=== PATIENT | female | born 1970 | race Caucasian/White ===

== ENCOUNTER 2022-04-27 16:17 | Emergency (ER) | payer OTHER ==
--- OUTSIDE RECORDS SUMMARY | 2022-04-27 16:20 | XMS REPORT | Continuity of Care Document ---
:1970 Author Organization [facility] t Address [address] [place] [address] Care Team Providers Name Role Phone AMINA ESPARZA Primary Care Physician Unavailable GUS_PARESH_Guevara Attending Clinician Unavailable GC_GUS_Guevara_J Attending Clinician Unavailable Rohan Waterman Attending Clinician [phone] RADIOLOGY Attending Clinician Unavailable Radiology Attending Clinician Unavailable GUS_PARESH_Guevara Admitting Clinician Unavailable GC_SWH[facility]OM[facility]_Gullett_J Admitting Clinician Unavailable AMINA ESPARZA Admitting Clinician Unavailable Payers Payer Name Policy Type Policy Number Effective Date Expiration Date Dontae lemus [facility]LY [facility] [id number] 2012 (PPO) 00[facility]00[facility] [id number] 2021 00:00:00 Problems Condition Condition Condition Status Onset Resolution Last Treating Co mments Source Name Details Category Date Date Treatment Clinician Date 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 [facility] thalassemi Thalassemi Me dical a a Allergies, Adverse Reactions, Alerts Allergy Allergy Status Severity Reaction(s) Onset Inactive Treating Comm ents Source Name Type Date Date Clinician NO KNOWN Drug Active Univers ALLERGIE Class ity [facility] [place] Social History Social Habit Start Date Stop Date Quantity Comments Source Sex Assigned At [birth year] [facility] 00:00:00 00:00:00 [facility] Smoking Status Start Date Stop Date Source Never Smoker [facility] Unknown if ever smoked [facility] Medications Ordered Filled Start Stop Current Ordering Indication Dosage Frequency Signature Comments Components Source Medication Medication Date Date Medication? Clinician (SIG) Name Name estradiol estradiol No 1patch( Q3.5D estradiol [facility] 0.075 mg/24 0.075 mg/24 es) 0.075 Medical hr hr mg/24 hr semiweekly semiweekly semiweekly transdermal transdermal transderma patch Apply patch Apply l patch 1 patch 1 patch Apply 1 twice a twice a patch week by week by twice a transderm. transderm. week by route for route for transderm. 90 days. 90 days. route for 90 days. medroxyprog medroxyprog No 1 Q1D medroxypro [facility] esterone 10 esterone 10 g[facility]one [facility] mg tablet mg tablet 10 mg Take 1 Take 1 tablet tablet tablet Take 1 every day every day tablet by oral by oral every day route for route for by oral 12 days. 12 days. route for 12 days. estradiol estradiol No 1patch( Q3.5D estradiol [facility] 0.075 mg/24 0.075 mg/24 es) 0.075 Medical hr hr mg/24 hr semiweekly semiweekly semiweekly transdermal transdermal transderma patch Apply patch Apply l patch 1 patch 1 patch Apply 1 twice a twice a patch week by week by twice a transderm. transderm. week by route for route for transderm. 90 days. 90 days. route for 90 days. medroxyprog medroxyprog No 1 Q1D medroxypro [facility] esterone 10 esterone 10 g[facility]one [facility] mg tablet mg tablet 10 mg Take 1 Take 1 tablet tablet tablet Take 1 every day every day tablet by oral by oral every day route for route for by oral 12 days. 12 days. route for 12 days. Immunizations Ordered Filled Immunization Date Status Comments [facility] e Immunization Name Name SARS-COV-2 COVID-19 2020-09-03 Completed Unive rsity of CRISTINA/J&J VACCINE 00:00:00 [facility] influenza, influenza, 2018-03-02 Completed [facility] unspecified unspecified 00:00:00 formulation formulation influenza, influenza, 2018-03-02 Completed [facility] unspecified unspecified 00:00:00 formulation formulation influenza, influenza, 2017-03-07 Completed [facility] unspecified unspecified 00:00:00 formulation formulation influenza, influenza, 2017-03-07 Completed [facility] unspecified unspecified 00:00:00 formulation formulation influenza, influenza, 2016-03-13 Completed [facility] unspecified unspecified 00:00:00 formulation formulation influenza, influenza, 2016-03-13 Completed [facility] unspecified unspecified 00:00:00 formulation formulation influenza, influenza, 2016-03-10 Completed [facility] unspecified unspecified 00:00:00 formulation formulation Td(adult) Td(adult) 2016-03-10 Completed [facility] unspecified unspecified 00:00:00 formulation formulation influenza, influenza, 2016-03-10 Completed [facility] unspecified unspecified 00:00:00 formulation formulation Td(adult) Td(adult) 2016-03-10 Completed [facility] unspecified unspecified 00:00:00 formulation formulation Td(adult) Td(adult) 2016-02-06 Completed [facility] unspecified unspecified 00:00:00 formulation formulation Td(adult) Td(adult) 2016-02-06 Completed [facility] unspecified unspecified 00:00:00 formulation formulation influenza, influenza, 2015-03-21 Completed [facility] unspecified unspecified 00:00:00 formulation formulation influenza, influenza, 2015-03-21 Completed [facility] unspecified unspecified 00:00:00 formulation formulation influenza, influenza, 2015-03-10 Completed [facility] unspecified unspecified 00:00:00 formulation formulation influenza, influenza, 2015-03-10 Completed [facility] unspecified unspecified 00:00:00 formulation formulation Td(adult) Td(adult) 2000-03-10 Completed [facility] unspecified unspecified 00:00:00 formulation formulation Td(adult) Td(adult) 2000-03-10 Completed [facility] unspecified unspecified 00:00:00 formulation formulation Vital Signs Vital Name Observation Time Observation Value Comments Source BP Diastolic 2022-02-02 00:00:00 90 mm[Hg] [facility] Height 2022-02-02 00:00:00 63 [in_i] [facility] BMI (Body Mass Index) 2022-02-02 00:00:00 22.3 kg/m2 [facility] BP Systolic 2022-02-02 00:00:00 180 mm[Hg] [facility] Body Weight 2022-02-02 00:00:00 126 [lb_av] [facility] Procedures Procedure Date / Time Performed Performing Clinician Sourc e MAMMO, screening, bilateral 2022-02-02 00:00:00 [facility] BONE DENSITY MEASUREMENT 2022-02-02 00:00:00 [facility] USING DEDICATED X RAY MACHINE US, transvaginal 2022-02-02 00:00:00 [facility] jahaira Colonoscopy 2018-05-10 00:00:00 [facility] Dilation and Curettage 2014-08-16 00:00:00 [facility] Dilation and Curettage 2014-08-08 00:00:00 [facility] Dilation and Curettage 1996-02-09 00:00:00 [facility] Dilation and Curettage 1992-08-08 00:00:00 [facility] Oral / Dental Surgery [facility] Plan of Care Planned Activity Planned Date Details Comments Source Diagnostic Test 2022-02-02 Cytomegalovirus Ab [facility] Pending 00:00:00 [Titer] in Serum or Plasma by Latex agglutination [code = 5121-9] Diagnostic Test 2022-02-02 Weight of 24 hour [facility] Pending 00:00:00 Specimen [code = 3153-4] Encounters Start End Encounter Admission Attending Care Care Encounter Source Date/Time Date/Time Type Type Clinicians Facility Department ID 2022-03-09 2022-03-09 Outpatient GC_SWHATBIC PRIV PRIV [id number] [facility] 00:00:00 00:00:00 _Guevara [id number] Medic al 2022-02-27 2022-02-27 Outpatient GC_SWHATBIC PRIV PRIV [id number] [facility] 00:00:00 00:00:00 _Guevara [id number] Medic al 2022-02-11 2022-02-11 Outpatient GC_SWHATBIC PRIV PRIV [id number] [facility] 00:00:00 00:00:00 _Guevara [id number] Medic al 2022-02-02 2022-02-02 Outpatient GC_[facility]_ PRIV PRIV [id number] [facility] 00:00:00 00:00:00 [place] [id number] Medi jahaira 2022-02-02 2022-02-02 Outpatient Guevara, PRIV PRIV [id number] 00:00:00 00:00:00 Rohan Frazier [id number] 2022-02-02 2022-02-02 Outpatient Guevara, PRIV PRIV [id number] 00:00:00 00:00:00 Rohan Frazier [id number] 2022-02-02 2022-02-02 [facility]an [facility] jeri Waterman GC_KELLIOMC_ : [address] [facility], [address], [place] [address] , Ph. 2022-02-01 2022-02-01 Outpatient GC_[facility]_ PRIV PRIV [id number] [facility] 00:00:00 00:00:00 Gullett_J [id number] Medi jahaira 2022-01-29 2022-01-29 Outpatient GC_SWHAOMC_ PRIV PRIV [id number] [facility] 00:00:00 00:00:00 Gullett_J [id number] Medi jahaira 2022-01-18 2022-01-18 Outpatient GC_SWH[facility]OM[facility]_ PRIV PRIV [id number] [facility] 00:00:00 00:00:00 Gullett_J [id number] Medi jahaira 2022-01-15 2022-01-15 Outpatient GC_SWHAOMC_ PRIV PRIV [id number] [facility] 00:00:00 00:00:00 Gullett_J [id number] Medi jahaira 2021-12-27 2021-12-27 Outpatient GC_[facility]_ PRIV PRIV [id number] [facility] 11:34:00 11:34:00 Gullett_J [id number] [facility] 2021-09-19 2021-09-19 Outpatient R RADIOLOGY [facility] [id number] Univers 15:41:33 23:59:00 ity of [facility] 2021-09-19 2021-09-19 Hospital Radiology [facility] [id number] Univers 15:30:00 23:59:00 Encounter ZULLY [id number] ity [facility] [id number] [facility] [id number] [facility] [address] 2020-09-23 2020-09-23 Outpatient _PARESH PRIV PRIV [id number] [facility] 12:01:00 12:01:00 _Guevara [id number] Medic al Results This patient has no known results.
[2022-04-27 17:07] LABS: Absolute Lymphocytes (CBC) 1.3 K/uL (0.7-4.9); Lymphocytes % 16.1 % (15.3-44.8); MCV 69.4 fL (80-100); MPV 8.6 fL (7.6-11.3); RBC Red Blood Cell Count 5.18 M/uL (3.86-4.86)
[2022-04-27 17:13] LABS: Protime INR 0.98
[2022-04-27] MEDS ORDERED: THIAMINE 200 MG/2 ML INJ ONE (17:19)
[2022-04-27] MEDS ORDERED: NA CHLORIDE 0.9% 1,000 ML ONE (17:20)
[2022-04-27] MEDS ORDERED: FOLIC ACID 5 MG/ML VIAL ONE (17:20)
[2022-04-27 17:30] LABS: ALT/SGPT 27 U/L (12-78); AST/SGOT 11 U/L (15-37); Albumin 4.1 g/dL (3.4-5.0); Alkaline Phosphatase 40 U/L (45-117); BUN Blood Urea Nitrogen 13 mg/dL (7-18); Bicarbonate 27 mmol/L (21-32); Bilirubin Direct 0.2 mg/dL (0-0.2); Bilirubin Total 0.9 mg/dL (0.2-1.0); Glomerular Filtration Rate 93 ml/min (=/>90); Glucose Level 163 mg/dL (74-106); Lipase 179 U/L (73-393); Magnesium 2.1 mg/dL (1.8-2.4); NT PRO-BNP 81 pg/mL (<125); Potassium 3.8 mmol/L (3.5-5.1); Protein, Total 6.6 g/dL (6.4-8.2); Sodium Level 139 mmol/L (136-145); Troponin High Sensitivity 5.1 pg/mL (<58.9)
--- NOTE | 2022-04-27 17:33 | RAD REPORT ---
EXAM DESCRIPTION: RAD - Chest Single View - 04/27/2022 5:27 pm CLINICAL HISTORY: COUGH COMPARISON: No comparisons FINDINGS: Lines: None. Lungs: No evidence of edema or pneumonia. Pleural: No significant pleural effusions or pneumothorax. Cardiac: The heart size is within normal limits. Mediastinum: Within normal limits. Bones: No acute fractures. Other: None IMPRESSION: No acute cardiopulmonary disease.
[2022-04-27 17:41] LABS: SARS-CoV-2 Antigen Rapid Res Negative (Negative)
--- NOTE | 2022-04-27 17:44 | RAD REPORT ---
EXAM DESCRIPTION: CT - Head Brain Wo Cont - 04/27/2022 5:32 pm CLINICAL HISTORY: Mental status change, unknown cause COMPARISON: No comparisons TECHNIQUE: All CT scans are performed using dose optimization technique as appropriate and may inclu de automated exposure control or mA/KV adjustment according to patient size. FINDINGS: No intracranial hemorrhage, hydrocephalus or extra-axial fluid collection.No areas of brai n edema or evidence of midline shift. The paranasal sinuses and mastoids are clear. The calvarium is intact. IMPRESSION: No acute intracranial abnormality.
[2022-04-27] MEDS ORDERED: ASPIRIN 81 MG CHEWABLE TABLET ONE (18:19)
--- NOTE | 2022-04-27 18:20 | RAD REPORT ---
EXAM DESCRIPTION: US - CP - 04/27/2022 6:00 pm CLINICAL HISTORY: DIZZINESS COMPARISON: No comparisons TECHNIQUE: Real-time sonographic evaluation of both carotid systems was performed. Doppler interroga tion was performed with waveform tracing bilaterally. FINDINGS: Normal high resistance waveforms are noted in both external carotid arteries. The common c arotid arteries and internal carotid arteries show normal low resistance waveforms. Minimal plaque noted at the ICA's. Peak systolic and end diastolic velocity values and the ICA/CCA ra tios are in the non-hemodynamically significant range. Antegrade flow seen in both vertebral arteries. IMPRESSION: No evidence of a hemodynamically significant stenosis.
--- NOTE | 2022-04-27 19:13 | EDPHYS ---
Physician Documentation [facility] Name: Fadumo Cueto Age: 52 yrs Sex: Female : 1970 Arrival Date: 04/27/2022 Time: 16:19 Bed 7 Private MD: ED Physician Harshal Cowan HPI: 04/27 18:03 This 52 yrs old Female presents to ER via Wheelchair with complaints of markus Altered Mental Status, Memory Loss, Numbness. 18:03 The patient presents with confusion. Onset: The symptoms/episode began/occurred just markus prior to arrival, today. Possible causes: CVA or TIA, drug use, alcohol, low blood sugar. Associated signs and symptoms: The patient has no apparent associated signs or symptoms. Current symptoms: In the emergency department the patient's symptoms have improved, moderately, is more alert. Patient's baseline: Neuro: alert and fully oriented. The patient has not experienced similar symptoms in the past. Historical: - Allergies: 16:46 No Known Allergies; ap3 - Immunization history:: Client reports receiving the 2nd dose of the Covid vaccine. - Social history:: Smoking status: Patient denies any tobacco usage or history of. - Family history:: not pertinent. ROS: 18:03 Constitutional: Negative for fever, chills, and weight loss, Eyes: Negative for injury, markus pain, redness, and discharge, ENT: Negative for injury, pain, and discharge, Neck: Negative for injury, pain, and swelling, Cardiovascular: Negative for chest pain, palpitations, and edema, Respiratory: Negative for shortness of breath, cough, wheezing, and pleuritic chest pain, Abdomen/GI: Negative for abdominal pain, nausea, vomiting, diarrhea, and constipation, Back: Negative for injury and pain, : Negative for injury, bleeding, discharge, and swelling, MS/Extremity: Negative for injury and deformity, Skin: Negative for injury, rash, and discoloration, Psych: Negative for depression, anxiety, suicide ideation, homicidal ideation, and hallucinations, Allergy/Immunology: Negative for hives, rash, and allergies, Endocrine: Negative for neck swelling, polydipsia, polyuria, polyphagia, and marked weight changes, Hematologic/Lymphatic: Negative for swollen nodes, abnormal bleeding, and unusual bruising. 18:03 Neuro: Positive for altered mental status, weakness. Exam: 18:03 Constitutional: This is a well developed, well nourished patient who is awake, alert, markus and in no acute distress. Head/Face: Normocephalic, atraumatic. Eyes: Pupils equal round and reactive to light, extra-ocular motions intact. Lids and lashes normal. Conjunctiva and sclera are non-icteric and not injected. Cornea within normal limits. Periorbital areas with no swelling, redness, or edema. ENT: Nares patent. No nasal discharge, no septal abnormalities noted. Tympanic membranes are normal and external auditory canals are clear. Oropharynx with no redness, swelling, or masses, exudates, or evidence of obstruction, uvula midline. Mucous membranes moist. Neck: Trachea midline, no thyromegaly or masses palpated, and no cervical lymphadenopathy. Supple, full range of motion without nuchal rigidity, or vertebral point tenderness. No Meningismus. Chest/axilla: Normal chest wall appearance and motion. Nontender with no deformity. No lesions are appreciated. Cardiovascular: Regular rate and rhythm with a normal S1 and S2. No gallops, murmurs, or rubs. Normal PMI, no JVD. No pulse deficits. Respiratory: Lungs have equal breath sounds bilaterally, clear to auscultation and percussion. No rales, rhonchi or wheezes noted. No increased work of breathing, no retractions or nasal flaring. Abdomen/GI: Soft, non-tender, with normal bowel sounds. No distension or tympany. No guarding or rebound. No evidence of tenderness throughout. Back: No spinal tenderness. No costovertebral tenderness. Full range of motion. Skin: Warm, dry with normal turgor. Normal color with no rashes, no lesions, and no evidence of cellulitis. MS/ Extremity: Pulses equal, no cyanosis. Neurovascular intact. Full, normal range of motion. Neuro: Awake and alert, GCS 15, oriented to person, place, time, and situation. Cranial nerves II-XII grossly intact. Motor strength 5/5 in all extremities. Sensory grossly intact. Cerebellar exam normal. Normal gait. Psych: Awake, alert, with orientation to person, place and time. Behavior, mood, and affect are within normal limits. 18:03 ECG was reviewed by the Attending Physician. 18:06 ECG was reviewed by the Attending Physician. [facility] Vital Signs: 16:47 BP 159 / 88; Pulse 94; Temp 98.6(O); Pulse Ox 100% ; Weight 53.98 kg; Height 5 ft. 3 ap3 in. (160.02 cm); 17:13 BP 145 / 82; Pulse 86; Resp 16; Pulse Ox 100% ; bp 18:32 BP 166 / 95; Pulse 104; Resp 16; Pulse Ox 100% ; bp 16:47 Body Mass Index 21.08 (53.98 kg, 160.02 cm) ap3 MDM: 16:37 Patient medically screened. markus 18:05 Differential Diagnosis: CVA, electrolyte abnormality, alcohol intoxication, markus hypoglycemia, intracranial bleed, TIA, UTI, volume depletion. Data reviewed: vital signs, nurses notes, lab test result(s), EKG, radiologic studies, CT scan, doppler, plain films. Data interpreted: nurse monitoring: rate is 86 beats/min, rhythm is regular, Pulse oximetry: on room air is 100 %. Test interpretation: by ED physician or midlevel provider: ECG, plain radiologic studies. Counseling: I had a detailed discussion with the patient and/or guardian regarding: the historical points, exam findings, and any diagnostic results supporting the discharge/admit diagnosis, lab results, radiology results, the need for outpatient follow up, for definitive care, a neurologist. 04/27 16:41 Order name: Basic Metabolic Panel; Complete Time: 18:02 [facility] 04/27 16:41 Order name: CBC with Diff; Complete Time: 18:02 [facility] 04/27 16:41 Order name: LFT's; Complete Time: 18:02 04/27 16:41 Order name: Magnesium; Complete Time: 18:02 [facility] 04/27 16:41 Order name: NT PRO-BNP; Complete Time: 18:02 [facility] 04/27 16:41 Order name: PT-INR; Complete Time: 18:02 [facility] 04/27 16:41 Order name: Troponin HS; Complete Time: 18:02 [facility] 04/27 16:41 Order name: Lipase; Complete Time: 18:02 [facility] 04/27 16:41 Order name: UDS [facility] 04/27 16:41 Order name: Asprin; Complete Time: 18:02 [facility] 04/27 16:41 Order name: Tylenol Level; Complete Time: 18:02 [facility] 04/27 16:41 Order name: SARS RAPID; Complete Time: 18:02 [facility] 04/27 17:10 Order name: Glucose, Ancillary Testing; Complete Time: 18:02 [facility] 04/27 19:14 Order name: Urine Dipstick-Ancillary [facility] 04/27 16:41 Order name: XRAY Chest (1 view); Complete Time: 18:02 [facility] 04/27 16:41 Order name: EKG; Complete Time: 16:42 [facility] 04/27 16:41 Order name: Cardiac monitoring; Complete Time: 16:48 [facility] 04/27 16:41 Order name: EKG - Nurse/Tech; Complete Time: 18:13 [facility] 04/27 16:41 Order name: IV Saline Lock; Complete Time: 17:00 [facility] 04/27 16:41 Order name: Labs collected and sent; Complete Time: 17:00 [facility] 04/27 16:41 Order name: O2 Per Protocol; Complete Time: 16:48 [facility] 04/27 16:41 Order name: O2 Sat Monitoring; Complete Time: 16:48 [facility] 04/27 16:41 Order name: Urine Dipstick-Ancillary (obtain specimen); Complete Time: 19:16 [facility] 04/27 16:41 Order name: CT Head Brain wo Cont; Complete Time: 18:02 [facility] 04/27 16:59 Order name: US Carotid Artery Bilateral; Complete Time: 18:55 [facility] EC:06 Rate is 85 beats/min. Rhythm is regular. QRS Parachute is Normal. AZ interval is normal. QRS markus interval is normal. QT interval is normal. No Q waves. T waves are Normal. No ST changes noted. Clinical impression: Normal ECG and No evidence of ischemia. Interpreted by me. Reviewed by me. Administered Medications: 17:24 Drug: Thiamine 100 mg Route: IV; Rate: bolus; Site: right antecubital; bp 17:25 Drug: NS 0.9% 1000 ml Route: IV; Rate: 1 bolus; Site: right antecubital; bp 17:25 Drug: foLIC Acid 1 mg Route: IVPB; Site: right antecubital; bp 18:24 Drug: Aspirin 81 mg Route: PO; aa5 Disposition Summary: 04/27/22 19:13 Discharge Ordered Location: Home markus Problem: new markus Symptoms: have improved markus Condition: Stable markus Diagnosis - Altered mental status, unspecified markus - Hyperglycemia, unspecified markus Followup: makrus - With: Private Physician - When: 2 - 3 days - Reason: Recheck today's complaints, Continuance of care, Re-evaluation by your physician Followup: markus - With: - When: 2 - 3 days - Reason: Recheck today's complaints, Re-evaluation by your physician Discharge Instructions: - Discharge Summary Sheet markus - Confusion markus - Hyperglycemia markus - Hyperglycemia, [id number] markus - Aspirin and Your Heart markus Forms: - Medication Reconciliation Form markus - Thank You Letter markus - Antibiotic Education markus - Prescription Opioid Use markus Signatures: Dispatcher [employer] EDHarshal Mora MD MD cha Calderon, Audri, RN RN aa5 Thompson Dominguez RN RN bp Lizeth Roe RN RN ap3 Corrections: (The following items were deleted from the chart) 18:07 18:03 Rate is 50 beats/min. Rhythm is regular. QRS Parachute is Normal. AZ interval is markus normal. QRS interval is normal. QT interval is normal. No Q waves. T waves are Normal. No ST changes noted. Clinical impression: Normal ECG and No evidence of ischemia. Interpreted by me. Reviewed by me. markus
--- NOTE | 2022-04-27 19:13 | ER ---
Nurse's Notes [facility] Name: Fadumo Cueto Age: 52 yrs Sex: Female : 1970 Arrival Date: 04/27/2022 Time: 16:19 Bed 7 Private MD: Diagnosis: Altered mental status, unspecified;Hyperglycemia, unspecified Presentation: 04/27 16:44 Chief complaint: Patient states: she has been having back and sciatica issues for "some ap3 time" as well as intermittent left foot numbness. patient reports that she couldn't remember her childrens names this morning when she woke up, but now she can. the patients reports that the patient had a "wave of anxiety" this afternoon and wasn't able to decipher what was real and what wasn't. Coronavirus screen: At this time, the client does not indicate any symptoms associated with coronavirus-19. Ebola Screen: No symptoms or risks identified at this time. 16:44 Method Of Arrival: Wheelchair ap3 16:47 Initial Sepsis Screen: Does the patient meet any 2 criteria? No. Patient's initial ap3 sepsis screen is negative. Does the patient have a suspected source of infection? No. Patient's initial sepsis screen is negative. Risk Assessment: Do you want to hurt yourself or someone else? Patient reports no desire to harm self or others. Note onset of symptoms is vague. some of the symptoms began a few weeks ago, and some started this morning. Onset of symptoms is unknown. 16:47 Acuity: TIMOTEO 3 ap3 Triage Assessment: 16:49 General: Appears in no apparent distress. Behavior is cooperative, anxious. Pain: ap3 Denies pain. Neuro: Level of Consciousness is awake, alert, obeys commands, Oriented to person, place, time, situation, looks to her for confirmation of everything she says. Cardiovascular: Patient's skin is warm and dry. Respiratory: Airway is patent Respiratory effort is even, unlabored, Respiratory pattern is regular, symmetrical. Historical: - Allergies: 16:46 No Known Allergies; ap3 - Immunization history:: Client reports receiving the 2nd dose of the Covid vaccine. - Social history:: Smoking status: Patient denies any tobacco usage or history of. - Family history:: not pertinent. Screenin:48 Abuse screen: Denies threats or abuse. Nutritional screening: No deficits noted. ap3 Tuberculosis screening: No symptoms or risk factors identified. 20:41 Fall Risk Mental Status- Overestimates/Forgets Limitations (15 pts.). tw5 Assessment: 16:50 General: SEE TRIAGE NOTE. bp 18:32 Reassessment: UOP PENDING. bp Vital Signs: 16:47 BP 159 / 88; Pulse 94; Temp 98.6(O); Pulse Ox 100% ; Weight 53.98 kg; Height 5 ft. 3 ap3 in. (160.02 cm); 17:13 BP 145 / 82; Pulse 86; Resp 16; Pulse Ox 100% ; bp 18:32 BP 166 / 95; Pulse 104; Resp 16; Pulse Ox 100% ; bp 16:47 Body Mass Index 21.08 (53.98 kg, 160.02 cm) ap3 ED Course: 16:19 Patient arrived in ED. as 16:33 Thompson Dominguez, KIRILL is Primary Nurse. bp 16:37 Harshal Cowan MD is Attending Physician. markus 16:48 Triage completed. ap3 16:49 Patient has correct armband on for positive identification. Bed in low position. Call ap3 light in reach. Side rails up X2. Adult w/ patient. 16:49 Arm band placed on right wrist. ap3 16:55 Inserted saline lock: 20 gauge in right antecubital area, using aseptic technique. mb9 Blood collected. 17:00 Basic Metabolic Panel Sent. mb9 17:00 CBC with Diff Sent. mb9 17:00 LFT's Sent. mb9 17:00 Magnesium Sent. mb9 17:00 NT PRO-BNP Sent. mb9 17:01 PT-INR Sent. mb9 17:01 Troponin HS Sent. mb9 17:01 Asprin Sent. mb9 17:01 Tylenol Level Sent. mb9 17:01 UDS Sent. mb9 17:01 Lipase Sent. mb9 17:29 XRAY Chest (1 view) In Process Unspecified. EDMS 17:34 CT Head Brain wo Cont In Process Unspecified. EDMS 18:02 US Carotid Artery Bilateral In Process Unspecified. EDMS 19:13 Zafar Mayo MD is Referral Physician. markus 20:41 No provider procedures requiring assistance completed. IV discontinued, intact, tw5 bleeding controlled, No redness/swelling at site. Pressure dressing applied. Administered Medications: 17:24 Drug: Thiamine 100 mg Route: IV; Rate: bolus; Site: right antecubital; bp 17:25 Drug: NS 0.9% 1000 ml Route: IV; Rate: 1 bolus; Site: right antecubital; bp 17:25 Drug: foLIC Acid 1 mg Route: IVPB; Site: right antecubital; bp 18:24 Drug: Aspirin 81 mg Route: PO; aa5 Medication: 20:41 VIS not applicable for this client. tw5 Outcome: 19:13 Discharge ordered by MD. aparicio 20:41 Discharged to home ambulatory. tw5 20:41 Condition: stable 20:41 Discharge instructions given to patient, Instructed on discharge instructions, follow up and referral plans. Demonstrated understanding of instructions, follow-up care. 20:41 Patient left the ED. 5 Signatures: Dispatcher [employer] EDMS Harshal Cowan MD MD cha Martinez, Amelia as Calderon, Audri, RN RN aa5 Thompson Dominguez RN RN Lizeth Tracey RN RN allan3 Janie Beatty tw5 Brittnee Crenshaw RN RN mb9
[2022-04-27 19:14] LABS: Urine Blood Trace-intact (Negative); Urine Glucose Negative (Negative); Urine Protein Negative (Negative); Urine Specific Gravity 1.015 (1.005-1.030)
[2022-04-27 19:28] LABS: Barbiturates NEGATIVE (NEGATIVE); Benzodiazepines NEGATIVE (NEGATIVE); Cocaine NEGATIVE (NEGATIVE); METHAMPHETAM NEGATIVE (NEGATIVE); Methadone NEGATIVE (NEGATIVE); Opiates NEGATIVE (NEGATIVE); Phencyclidine NEGATIVE (NEGATIVE); THC Cannibis NEGATIVE (NEGATIVE)
[2022-04-27 21:33] VITALS: TEMP 98.6; O2SAT 100
[2022-04-27 21:36] VITALS: BP 166/95
--- NOTE | 2022-04-28 19:11 | EKG ---
Test Date: 2022-04-27 Test Time: 18:07:14 [employer] Grade Teacher: BOGDAN MEASUREMENT RESULTS: Intervals: Rate: 102 PA: 124 QRSD: 78 QT: 354 QTc: 461 [place]: P: 81 PA: 124 QRS: 62 T: 73 INTERPRETIVE STATEMENTS: Sinus tachycardia Nonspecific ST abnormality Abnormal ECG No previous ECG available for comparison Electronically Signed On 04-28-22 19:10:19 PROFESSOR OF FINANCE by Deo Grimes
== END 2022-04-27 20:41 | disposition home or self-care (01) ==
LOC: ER 16:17
DX: R73.9 Hyperglycemia, unspecified (principal); Z20.822 Contact with and (suspected) exposure to COVID-19
CPT/HCPCS: 93005; 85025; 80048; 36415; 83735; 80329 ×2; 85610; 82947; 80076; 81003; 84484; 83690; 83880; 80307; 70450; 71045; 93880; 96375; 96374; 99284; 87811; J3411; J7030